=== PATIENT | female | born 1945 | race Caucasian/White ===

== ENCOUNTER 2024-07-24 02:30 | Outpatient (CLI) | payer MEDICARE, OTHER, SELFPAY ==
--- NOTE | 2024-07-24 | DI.US_ITS ---
Exam(s) US ABDOMEN LIMITED EXAM: US ABDOMEN LIMITED CLINICAL HISTORY: Assess previously documented pancreatic cyst for growth, K86.2; no symptoms TECHNIQUE: Ultrasound abdomen performed using standard protocol. COMPARISON: MR MRI Abdomen w/ + w/o Contrast from 02/15/2024 FINDINGS: PANCREAS: There is a 1.1 x 0.7 x 1.7 cm cyst in the head of the pancreas. LIVER: Normal. Hepatopetal flow in the Portal Vein. The liver measures in 12.5 cm length. No evidence of a hepatic mass. GALLBLADDER:Status post cholecystectomy. BILIARY SYSTEM: Common bile duct measures 7 mm. No intrahepatic biliary ductal dilation. RIGHT KIDNEY: Kidney is normal in size. No evidence of renal calculi. No evidence of hydronephrosis. No renal mass or cyst identified. ASCITES: None seen. Aorta: There is a 3.3 x 3.5 cm abdominal aortic aneurysm. IMPRESSION: 1. 1.1 x 0.7 x 1.7 cm cyst in the head of the pancreas. 2. 3.3 x 3.5 cm abdominal aortic aneurysm. DATA REPOSITORY:
== END 2024-07-24 02:50 ==
LOC: DI 02:30
PROVIDERS: PCP Family Medicine; Visit Provider Family Medicine
DX: K86.2 Cyst of pancreas (principal)
CPT/HCPCS: 76705